=== PATIENT | male | born 1990 | race African-American/Black ===

== ENCOUNTER 2023-01-01 20:20 | Emergency (ER) | payer OTHER, SELFPAY ==
[2023-01-01 20:53] VITALS: BP 145/87; PULSE 90; RESP 18; TEMP 36.6; O2SAT 97; BMI 25.7
== END 2023-01-01 23:58 | disposition left against medical advice (07) ==
PROVIDERS: Emergency Provider Emergency Medicine
DX: S01.511A Laceration without foreign body of lip, initial encounter (principal); W22.01XA Walked into wall, initial encounter; Y93.9 Activity, unspecified; Y92.9 Unspecified place or not applicable; Y99.9 Unspecified external cause status
CPT/HCPCS: 99281